=== PATIENT | male | born 1945 | race Caucasian/White ===

== ENCOUNTER 2017-05-16 09:36 | Day surgery (SDC) | payer OTHER ==
[2017-05-16] MEDS ORDERED: NS 500 ML IV 500 ML IV ONE (09:37)
[2017-05-16] MEDS ORDERED: TETRACAINE 0.5% OPHTH 1 DOSE AFFEYE ONE ×2 (09:45→14:08)
[2017-05-16] MEDS ORDERED: VIGAMOX 0.5% OPHTH 1 DOSE AFFEYE ONE ×5 (09:50→14:30)
[2017-05-16] MEDS ORDERED: PROLENSA OPHTH 1 DOSE AFFEYE ONE (10:02)
[2017-05-16] MEDS ORDERED: ALPHAGAN-P OPHTH 1 DOSE AFFEYE ONE (10:03)
[2017-05-16] MEDS ORDERED: AK-DILATE 2.5% OPHTH 1 DOSE OP ONE ×3 (10:04→10:06)
[2017-05-16] MEDS ORDERED: CYCLOGYL 1% OPHTH 1 DOSE OP ONE ×3 (10:04→10:06)
[2017-05-16] MEDS ORDERED: MYDRIACIL OPHTH 1 DOSE AFFEYE ONE ×3 (10:04→10:06)
[2017-05-16] MEDS ORDERED: BETADINE OPHTH SOLN 5% EACHEYE ONE (14:07)
[2017-05-16] MEDS ORDERED: ADRENALINE CHL INJ IJ ONE ×2 (14:15→14:19)
[2017-05-16] MEDS ORDERED: XYLOCAINE-MPF 1% IJ ONE ×2 (14:15→14:19)
[2017-05-16] MEDS ORDERED: DUOVISC IO ONE ×2 (14:15→14:19)
[2017-05-16] MEDS ORDERED: BSS OPHTH (PLAIN) 500 ML with VANCOMYCIN HCL 500 MG VIAL 25 MG, ADRENALINE CHL INJ 1 MG IR ONE ×6 (14:16)
[2017-05-16 16:41] VITALS: BP 135/75
== END 2017-05-16 14:55 | disposition home or self-care (01) ==
LOC: SURG1 09:36
PROVIDERS: ATTEND Ophthalmology
PROC: 08DK3ZZ Extraction of Left Lens, Percutaneous Approach (ICD-10-PCS; principal; 2017-05-16 17:15)
PROC: 08RK3JZ Replacement of Left Lens with Synthetic Substitute, Percutaneous Approach (ICD-10-PCS; principal; 2017-05-16 17:15)
DX: H25.12 Age-related nuclear cataract, left eye (principal); H25.012 Cortical age-related cataract, left eye
CPT/HCPCS: 99100; A4217; J0170; J3370

== ENCOUNTER 2017-05-30 07:04 | Day surgery (SDC) | payer OTHER ==
[~2017-05-30 07:04] MED LIST: TETRACAINE 0.5% OPHTH 1 DOSE AFFEYE ONE
[2017-05-30] MEDS ORDERED: VIGAMOX 0.5% OPHTH 1 DOSE AFFEYE ONE ×5 (07:05→09:39)
[2017-05-30] MEDS ORDERED: NS 500 ML IV 500 ML IV ONE (07:09)
[2017-05-30] MEDS ORDERED: PROLENSA OPHTH 1 DOSE AFFEYE ONE (07:16)
[2017-05-30] MEDS ORDERED: ALPHAGAN-P OPHTH 1 DOSE AFFEYE ONE (07:17)
[2017-05-30] MEDS ORDERED: AK-DILATE 2.5% OPHTH 1 DOSE OP ONE ×3 (07:18→07:20)
[2017-05-30] MEDS ORDERED: CYCLOGYL 1% OPHTH 1 DOSE OP ONE ×3 (07:18→07:20)
[2017-05-30] MEDS ORDERED: MYDRIACIL OPHTH 1 DOSE AFFEYE ONE ×3 (07:18→07:20)
[2017-05-30] MEDS ORDERED: BETADINE OPHTH SOLN 5% EACHEYE ONE (09:15)
[2017-05-30] MEDS ORDERED: TETRACAINE 0.5% OPHTH 1 DOSE AFFEYE ONE ×3 (09:15→09:26)
[2017-05-30] MEDS ORDERED: XYLOCAINE-MPF 1% IJ ONE ×2 (09:17→09:26)
[2017-05-30] MEDS ORDERED: BSS OPHTH (PLAIN) 500 ML with VANCOMYCIN HCL 500 MG VIAL 25 MG, ADRENALINE CHL INJ 1 MG IR ONE ×6 (09:17)
[2017-05-30] MEDS ORDERED: ADRENALINE CHL INJ IJ ONE ×2 (09:17→09:26)
[2017-05-30] MEDS ORDERED: DUOVISC IO ONE ×2 (09:17→09:26)
[2017-05-30 09:55] VITALS: BP 131/73
[2017-05-30] MEDS ORDERED: DIPRIVAN VIAL ONE (10:50)
== END 2017-05-30 10:00 | disposition home or self-care (01) ==
LOC: SURG1 07:04
PROVIDERS: ATTEND Ophthalmology
PROC: 08DJ3ZZ Extraction of Right Lens, Percutaneous Approach (ICD-10-PCS; principal; 2017-05-30 08:15)
PROC: 08RJ3JZ Replacement of Right Lens with Synthetic Substitute, Percutaneous Approach (ICD-10-PCS; principal; 2017-05-30 08:15)
DX: H25.11 Age-related nuclear cataract, right eye (principal); H25.011 Cortical age-related cataract, right eye
CPT/HCPCS: 99100; A4217; J0170; J3370; J3490